=== PATIENT | male | born 1960 | race Caucasian/White ===

== ENCOUNTER 2016-05-01 23:12 | Emergency (ER) | payer OTHER ==
[2016-05-01] MEDS ORDERED: 0.9 % SODIUM CHLORIDE 1,000 ML IV ONE (23:30)
[2016-05-01] MEDS ORDERED: MORPHINE SULFATE 2 MG/ML DISP.SYRIN IVP ONE (23:30)
[2016-05-01] MEDS ORDERED: ONDANSETRON HCL/PF 4 MG/ 2ML VIAL IVP ONE (23:30)
--- NOTE | 2016-05-01 23:35 | ED Physician Documentation ---
Flank Pain - HISTORIAN Historian: patient, spouse - HPI Stated Complaint: r flank pain Chief Complaint: Flank Pain Additional Information: One hour right flank pain radiating to right pelvis. Previous kidney stones x4. Says this one is not moving. Nauseated. Associated Symptoms: nausea. denies: fever, vomiting Exacerbated by: nothing Relieved by: nothing - ROS CONST: no problems - SOCIAL HX Smoking History: non-smoker - FAMILY HX Family History: no significant history - PAST HX Past History: kidney stones Ischemic Bowel Risk Factors: none Surgeries/Procedures: other (herniorraphy x2, left thumb after injured in printing press) - VITAL SIGNS Vital Signs: Vital Signs Temp Pulse Resp BP Pulse Ox 128/96 08/09/14 03:29 - REVIEWED ASSESSMENTS Nursing Assessment Reviewed: Yes Vitals Reviewed: Yes Progress - Progress Progress: Cervical spine - two views Clinical history: Fell out of wheelchair. Findings: Examination of the cervical spine in AP and lateral views is extremely limited on the lateral view with the vertebrae visualized down to the midbody of C2. There is no obvious fracture on the AP image. The C1-2 articulation is not well demonstrated because of superimposed mandible. Impression: 1. Severely limited examination without definite fracture. 2. Fracture cannot be excluded based on these images. Electronically signed on May 01, 2016 11:29:28 PM CENTER LEAD CONSULTANT by: Edmundo Stover Patient became comfortable just prior to CT. No meds given. ED Results Lab/Radiology - Orders Orders: ED Orders Category Date Time Status Place Saline Lock/IV Now Care 05/01/16 23:[address] ABD & PELVIS W/O CON Stat Exams 05/01/16 Ordered 0.9 % Sodium Chloride [Normal Saline] 1,000 ml Med 05/01/16 23:30 Active IV Q2H Morphine Sulfate [DepoDur] Med 05/01/16 23:30 Discontinued 5 mg IVP NOW ONE Ondansetron HCl/Pf [Zofran 4 mg/2 ml] Med 05/01/16 23:30 Discontinued 4 mg IVP NOW ONE Abdominal Pain Physical Exam - Physical Exam General Appearance: moderate distress (restless) EENT: eye inspection normal, ENT inspection normal NECK: normal inspection, supple RESPIRATORY: no resp distress, breath sounds normal CVS: reg rate & rhythm, heart sounds normal, no murmur ABDOMEN: soft, normal bowel sounds, non-tender RECTAL: deferred BACK: normal inspection, no CVA tenderness, other (no midline tenderness) SKIN: warm/dry, normal color EXTREMITIES: normal range of motion (gait), no evidence of injury NEURO: CN's nml as tested, motor nml, sensation nml, cognition normal Vital Signs: Vital Signs Temp Pulse Resp BP Pulse Ox 128/96 08/09/14 03:29 Discharge Clincal Impression: Bladder calculus Additional Instructions: Drink more water. Home Medications: Ambulatory Orders Gabapentin [Gabapentin] 100 mg PO HS 05/02/16 Valacyclovir HCl [Valacyclovir] 1,000 mg PO TID 05/02/16 oxyCODONE HCL/ACETAMINOPHEN [Percocet 5/325] 2 tab PO Q4 PRN 05/02/16 Condition: Good Disposition: 01 HOME, SELF-CARE Decision to Admit: NO Decision Time: 00:15
[2016-05-02 00:42] VITALS: BP 154/88
[2016-05-02 05:54] LABS: APPEARANCE,URINE CLEAR (CLEAR); COLOR,URINE YELLOW (YELLOW); OCCULT BLOOD,URINE TRACE-INTACT (NEGATIVE); PH URINE 5.5 (5.0 - 8.0); UROBILINOGEN URINE 0.2 Eu (0.2-1.0)
--- NOTE | 2016-05-02 07:39 | Diagnostic Imaging Report ---
RED CASTRO - JOANNE [facility] [address] [facility] [address] [place], [place]. [address] Report Submission Date: May 02, 2016 12:11:24 AM CUSTOMER RELATIONS ADVISOR Patient Study Name: TRINA CAREY Date: May 01, 2016 11:36:32 PM CUSTOMER RELATIONS ADVISOR Modality Type: CT\SR Gender: M Description: CT ABD & PELVIS W/O CO : 62 Institution: [facility] Physician: RED CASTRO CT of the abdomen and pelvis without contrast Clinical history: Right flank pain beginnin an hour ago. Nausea. History of kidney stones. Technique: CT of the abdomen and pelvis is performed without oral or intravenous administration of contrast. Sagittal and coronal reconstructions are performed by the technologist. Findings: The liver and spleen demonstrate normal attenuation without focal defect. Gallbladder is normally distended. There is no pancreatic or adrenal abnormality. There are bilateral intrarenal calculi and left renal cyst. There is a 4 mm bladder calculus that may represent a recently passed ureteral stone. Vascular calcification is present in the abdominal aorta without evidence of aneurysm. The appendix is visualized and is within normal limits. Diverticula are demonstrated in the descending and sigmoid colon without evidence of diverticulitis. There are postoperative changes consistent with previous inguinal hernia repair bilaterally. Impression: 1. 4 mm bladder calculus consistent with recently passed ureteral stone. 2. Bilateral intrarenal calculi and left renal cyst. 3. Vascular calcification. 4. Negative appendix. 5. Diverticulosis. Electronically signed on May 02, 2016 12:11:24 AM CUSTOMER RELATIONS ADVISOR by: Edmundo SY
== END 2016-05-02 00:10 | disposition home or self-care (01) ==
LOC: ED 23:12
DX: N21.0 Calculus in bladder (principal)
CPT/HCPCS: 74176; 81002; 96361; 96374; 96375; 99283; 99284

== ENCOUNTER 2017-12-03 00:43 | Observation (INO) | payer OTHER ==
[2017-12-03] MEDS ORDERED: KETOROLAC TROMETHAMINE 30 MG/1ML VIAL IVP ONE (01:04)
[2017-12-03] MEDS ORDERED: MORPHINE SULFATE 4 MG/ML PREFILLED SYR IVP ONE ×2 (01:05→02:58)
[2017-12-03] MEDS ORDERED: 0.9 % SODIUM CHLORIDE 1,000 ML IV ONE ×2 (01:11→02:15)
[2017-12-03] MEDS ORDERED: ONDANSETRON HCL/PF 4 MG/ 2ML VIAL IVP ONE (01:13)
--- NOTE | 2017-12-03 01:16 | ED Physician Documentation ---
Flank Pain - HPI Stated Complaint: left flank pain Chief Complaint: Flank Pain Additional Information: Patient with past medical history of kidney stones presents to ED with a 2 hours history of left flank pain. Patient took Percocet 10 at home for the pain with little relief. He has a history of kidney stones but states it has been quite awhile since he had one. The last kidney stone he had he passed without intervention. Onset: hours (2) Duration: constant Timing: still present Severity: moderate Quality: sharp, stabbing Associated Symptoms: nausea Exacerbated by: movements Relieved by: nothing Further Comments: no - ROS CONST: no problems GI/: none CVS/RESP: none EYES/ENT: none MS/SKIN/LYMPH: none NEURO/PSYCH: none - SOCIAL HX Smoking History: non-smoker Alcohol Use: none Drug Use: none - FAMILY HX Family History: none - PAST HX Past History: kidney stones Ischemic Bowel Risk Factors: none Other History: none Surgeries/Procedures: other (hernia repair) Medications: none - VITAL SIGNS Vital Signs: Vital Signs Temp Pulse Resp BP Pulse Ox 154/88 05/02/16 00:41 - REVIEWED ASSESSMENTS Nursing Assessment Reviewed: Yes Vitals Reviewed: Yes Progress - Results/Orders Results/Orders: CT of abdomen and pelvis without contrast Clinical history: Left flank pain. History of kidney stone. Technique: CT of the abdomen and pelvis is performed without oral or intravenous administration of contrast. Sagittal and coronal reconstructions were performed by the technologist. Findings: The liver is hypodense consistent with hepatic steatosis. The gallbladder is normally distended. Calcified granulomata are incidentally noted in the spleen. The spleen is otherwise unremarkable. There are bilateral punctate intrarenal calculi. The right collecting system is unremarkable. Ther e is a 4 mm left ureteral calculus at the L4-5 level with left obstructive uropathy. Ureter distal to this is of normal caliber. The bladder is unremarkable. Left renal cyst is present in the upper pole. Vascular calcification is present in the abdominal aorta. The appendix is visualized and is within normal limits. There are multiple diverticula in the descending and sigmoid colon without evidence of diverticulitis. There are surgical clips in the lower abdomen likely related to prior hernia repair. Impression: 1. 4 mm left ureteral calculus at the L4-5 level with left obstructive uropathy. 2. Bilateral intrarenal calculi. 3. Hepatic steatosis. 4. Postoperative changes. 5. Negative appendix. 6. Vascular calcification. Lumbar spondylosis. Electronically signed on Dec 03, 2017 1:45:59 AM CDT by: Edmundo Stover - Progress Progress: 0215 Patient still having left flank pain ED Results Lab/Radiology - Orders Orders: ED Orders Category Date Time Status CT ABD & PELVIS W/O CON Stat Exams 12/03/17 Ordered CBC REF Stat Lab 12/03/17 Ordered CMP Routine Lab 12/03/17 Ordered URINALYSIS Routine Lab 12/03/17 Ordered Ketorolac Tromethamine [Toradol] Med 12/03/17 01:04 Once 30 mg IVP NOW ONE Morphine Sulfate [DepoDUR] Med 12/03/17 01:05 Once 4 mg IVP NOW ONE NORMAL SALINE @ 1000 MLS/HR ( 1000ml BOLUS) Med 12/03/17 01:11 Ordered 0.9 % Sodium Chloride [Normal Saline] 1,000 ml IV Q1H Ondansetron HCl/Pf [Zofran 4 mg/2 ml] Med 12/03/17 01:13 Once 4 mg IVP NOW ONE Abdominal Pain Physical Exam - Physical Exam General Appearance: mild distress EENT: VALERY NECK: supple RESPIRATORY: no resp distress, breath sounds normal CVS: reg rate & rhythm, heart sounds normal ABDOMEN: soft, non-tender RECTAL: deferred BACK: no CVA tenderness SKIN: warm/dry EXTREMITIES: no edema NEURO: oriented X3 Vital Signs: Vital Signs Temp Pulse Resp BP Pulse Ox 154/88 05/02/16 00:41 Discharge Clincal Impression: Renal calculus, left, Intractable pain Referrals: Dayami De La Paz MD [Primary Care Provider] - 2 Days Disposition: ADMITTED INPATIENT Decision to Admit: [id number] Date of Decison to Admit: 12/03/17 Decision Time: 02:27
[2017-12-03 01:37] LABS: eGFR (Non-African) > 60
[2017-12-03 02:42] LABS: BASO % 0.5 % (0.0-1.5); EOS % 1.9 % (0.0-6.8); LYMPH ABS # 2.89 thou/uL (0.60-4.00); MCH. 29.5 pg (28.0-34.0); MCV 87.9 fL (80.0-100.0); MONOCYTE % 9.2 % (0.0-11.0); MONOCYTE ABS # 0.94 thou/uL (0.00-0.90); PLATELET COUNT 330 thou/uL (130-400)
[2017-12-03] MEDS ORDERED: MORPHINE SULFATE 4 MG/ML PREFILLED SYR IVP PRN (02:56)
[2017-12-03] MEDS ORDERED: ONDANSETRON HCL 4 MG TAB.RAPDIS PO PRN (02:57)
[2017-12-03] MEDS ORDERED: ENOXAPARIN SODIUM 30 MG/0.3 ML DISP.SYRIN SQ SCH (03:20)
[2017-12-03] MEDS: 0.9 % SODIUM CHLORIDE 1,000 ML IV SCH ×2 (03:46→10:28)
[2017-12-03] MEDS ORDERED: oxyCODONE/ACETAMINOPHEN 5/325 TABLET PO SCH (05:00)
[2017-12-03 05:39] VITALS: BMI 37.8
--- NOTE | 2017-12-03 06:04 | Diagnostic Imaging Report ---
NOREEN ROBLERO [facility] [address] [facility] [address] [place], [place]. [address] Report Submission Date: Dec 03, 2017 1:45:59 AM CDT Patient Study Name: PAIGE CAREY Date: Dec 03, 2017 1:26:16 AM CDT Modality Type: CT\SR Gender: M Description: CT ABD PELVIS W/O CO : 62 Institution: [facility] Physician: NOREEN ROBLERO CT of abdomen and pelvis without contrast Clinical history: Left flank pain. History of kidney stone. Technique: CT of the abdomen and pelvis is performed without oral or intravenous administration of contrast. Sagittal and coronal reconstructions were performed by the technologist. Findings: The liver is hypodense consistent with hepatic steatosis. The gallbladder is normally distended. Calcified granulomata are incidentally noted in the spleen. The spleen is otherwise unremarkable. There are bilateral punctate intrarenal calculi. The right collecting system is unremarkable. There is a 4 mm left ureteral calculus at the L4-5 level with left obstructive uropathy. Ureter distal to this is of normal caliber. The bladder is unremarkable. Left renal cyst is present in the upper pole. Vascular calcification is present in the abdominal aorta. The appendix is visualized and is within normal limits. There are multiple diverticula in the descending and sigmoid colon without evidence of diverticulitis. There are surgical clips in the lower abdomen likely related to prior hernia repair. Impression: 1. 4 mm left ureteral calculus at the L4-5 level with left obstructive uropathy. 2. Bilateral intrarenal calculi. 3. Hepatic steatosis. 4. Postoperative changes. 5. Negative appendix. 6. Vascular calcification. Lumbar spondylosis. Electronically signed on Dec 03, 2017 1:45:59 AM CDT by: Edmundo SY
[2017-12-03 06:27] LABS: APPEARANCE,URINE CLEAR (CLEAR); COLOR,URINE YELLOW (YELLOW); OCCULT BLOOD,URINE TRACE-INTACT (NEGATIVE); PH URINE 5.5 (5.0 - 8.0); UROBILINOGEN URINE 0.2 Eu (0.2-1.0)
[2017-12-03] MEDS: oxyCODONE/ACETAMINOPHEN 5/325 TABLET PO PRN ×2 (06:36→13:23)
[2017-12-03] MEDS ORDERED: LOSARTAN POTASSIUM 50 MG TABLET PO SCH (09:00)
[2017-12-03] MEDS ORDERED: SALINE FLUSH 10 ML DISP.SYRIN IV SCH (09:00)
[2017-12-03] MEDS ORDERED: TAMSULOSIN HCL 0.4 MG CAP.ER.24H PO ONE (10:54)
--- NOTE | 2017-12-03 12:10 | Discharge Summary ---
Discharge Summary - Discharge Sumary History of Present Illness: Patient was admitted in an observation status for pain controlled related to his renal calculi. Patient received multiple doses of Morphine during the night. Last pain medication was PO percocet. Rates his pain at 0-1/10 at discharge. Vital signs remain stable. Will continue all current home medications. Additional Instructions: bus driver supervisor your prescription and start it TOMORROW. Do not take ibuprofen, aleve, naproxen or any other NSAID while you are on toradol. Increase your fluid intake to at least 64 oz of water a day. Strain all urine. If the stone is passed, place it in a specimen cup and take it to your primary care physician for analysis. Make a follow up appointment with your urologist. Condition at Discharge: Stable Home Medications: Ambulatory Orders Medication Instructions Recorded oxyCODONE HCL/ACETAMINOPHEN 2 tab PO Q4 PRN 05/02/16 [Percocet 5/325] Cyanocobalamin (Vitamin B-12) 1,000 mcg PO DAILY 12/03/17 [Vitamin B-12] Losartan Potassium [Cozaar] 100 mg PO BID 12/03/17 [place]-3 Fatty Acids/Fish Oil [Fish 1 each PO DAILY 12/03/17 Oil 1,000 mg Capsule] Consultations this Visit: None Procedures this Visit: None Allergies/Adverse Reactions: Allergies Allergy/AdvReac Type Severity Reaction Status Date / Time amlodipine AdvReac Mild Feet Verified 12/03/17 01:26 Swelling hydrochlorothiazide AdvReac Mild Avoids due Verified 12/03/17 01:26 to Gout Hx lisinopril AdvReac Mild Diarrhea Verified 12/03/17 01:26 Patient Problems: Current Active Problems Problem Status Onset Intractable pain Acute Renal calculus, left Acute
[2017-12-03 13:30] VITALS: BP 159/71
== END 2017-12-03 13:26 | disposition home or self-care (01) ==
LOC: ED 00:43 → SOUTH 02:48
PROVIDERS: ADMIT Nurse Practitioner Family; ATTEND Nurse Practitioner Family
DX: N20.0 Calculus of kidney (principal)
CPT/HCPCS: 74176; 80053; 81002; 85025; A9270; G0378; J1650; J1885; J2270; J2405; J7030; 99217; 99284; S1016